=== PATIENT | male | born 1995 ===

== ENCOUNTER 2019-02-15 15:15 | Emergency (ER) | payer SELFPAY ==
[2019-02-15 15:41] VITALS: TEMP 98
[2019-02-15] MEDS ORDERED: Sodium Chloride 0.9% 1,000 ML IV ONE (16:07)
[2019-02-15 16:15] LABS: BASO % 0.3 % (0.0-2.0); EOS % 0.1 % (0.0-4.0); HEMOGLOBIN 16.4 g/dL (12.0-18.0); LYMPH # 0.6 K/uL (1.0-4.3); LYMPH % 6.5 % (20.0-40.0); MEAN CELL VOLUME 93.3 fL (80.0-94.0); MEAN CORPUSCULAR HEMOGLOBIN 31.8 pg (27.0-31.0); MEAN CORPUSCULAR HGB CONC 34.1 g/dL (33.0-37.0); MEAN PLATELET VOLUME 10.2 fL (7.2-11.7); MONO # 0.1 K/uL (0.0-0.8); MONO % 1.5 % (0.0-10.0); NEUT # 8.3 K/uL (1.8-7.0); NEUT % 91.6 % (50.0-75.0); PLATELET COUNT 170 K/uL (130-400); RBC 5.14 Mil/uL (4.40-5.90); RED CELL DISTRIBUTION WIDTH 12.9 % (11.5-14.5)
[2019-02-15] MEDS ORDERED: Sodium Chloride 0.9% 1,000 ML ONE (16:17)
[2019-02-15 16:19] LABS: ALB/GLOB RATIO 1.5 (1.0-2.1); ALT/SGPT 27 U/L (21-72); AST/SGOT 32 U/L (17-59); BLOOD UREA NITROGEN 14 mg/dL (9-20); CALCIUM 9.8 mg/dl (8.6-10.4); GFR NON-AFRICAN AMERICAN > 60
[2019-02-15 16:23] LABS: SQUAMOUS EPITHIAL < 1 /hpf (0-5); URINE BILIRUBIN NEGATIVE (NEGATIVE); URINE BLOOD NEGATIVE (NEGATIVE); URINE CLARITY Clear (Clear); URINE COLOR Yellow (YELLOW); URINE GLUCOSE (UA) NORMAL (Normal); URINE LEUKOCYTE ESTERASE NEG Leu/uL (Negative); URINE PROTEIN 1+ mg/dL (NEGATIVE); URINE UROBILINOGEN NORMAL mg/dL (0.2-1.0)
[2019-02-15 16:31] LABS: CK-MB 1.91 ng/mL (0.0-3.38)
[2019-02-15 16:35] LABS: BARBITURATES, UR NEGATIVE (NEGATIVE); BENZODIAZEPINES, UR NEGATIVE (NEGATIVE); OPIATES, UR NEGATIVE (NEGATIVE); PHENCYCLIDINE, UR NEGATIVE (NEGATIVE)
[2019-02-15 16:46] LABS: ANISOCYTOSIS SLIGHT; LYMPHOCYTE 8 % (20-40); MONOCYTE 1 % (0-10); NEUTROPHIL 91 % (50-75); PLATELET ESTIMATE NORMAL (NORMAL); TOTAL CELLS COUNTED 100
[2019-02-15 16:47] LABS: GIANT PLATELETS PRESENT; LARGE PLATELETS PRESENT
[2019-02-15 18:06] VITALS: BP 108/70; PULSE 93; RESP 13; O2SAT 96
--- NOTE | 2019-02-15 18:10 | C.PDOC ---
History Of Present Illness 23 year old male presents to the ED complaining of diffused abdominal pain associated with nausea and vomiting that began this morning. Reports he ate shrimp last night. Denies any other sick contacts. Also notes he had a near-syncopal episode today and 2 full syncopal episodes witnessed by other people in the past month. Denies any chest pain, shortness of breath, palpitations, visual changes, facial droop, slurred speech, sensory changes, or extremity weakness. Time Seen by Provider: 02/15/19 15:16 Chief Complaint (Nursing): Abdominal Pain History Per: Patient History/Exam Limitations: no limitations Onset/Duration Of Symptoms: Hrs Current Symptoms Are (Timing): Still Present Location Of Pain/Discomfort: Diffuse Quality Of Discomfort: "Pain" Associated Symptoms: Nausea, Vomiting Past Medical History Reviewed: Historical Data, Nursing Documentation, Vital Signs Vital Signs: Last Vital Signs Temp 98.0 F 02/15/19 15:25 Pulse 93 H 02/15/19 18:06 Resp 13 02/15/19 18:06 BP 108/70 02/15/19 18:06 Pulse Ox 96 02/15/19 18:06 Primary Care Provider: FAMILY PROVIDER,NO - Medical History PMH: No Chronic Diseases Surgical History: Back Surgery (Spinal fusion) Family History: States: No Known Family Hx - Social History Hx Alcohol Use: Yes Hx Substance Use: No - Immunization History Hx Tetanus Toxoid Vaccination: Yes Hx Influenza Vaccination: No Hx Pneumococcal Vaccination: Yes Review Of Systems Constitutional: Negative for: Fever, Chills Eyes: Negative for: Vision Change Cardiovascular: Negative for: Chest Pain, Palpitations Gastrointestinal: Positive for: Nausea, Vomiting, Abdominal Pain. Negative for: Diarrhea, Constipation Genitourinary: Negative for: Dysuria, Hematuria Musculoskeletal: Negative for: Back Pain Neurological: Negative for: Weakness, Numbness, Other (facial droop ) Physical Exam - Physical Exam Appears: Non-toxic, No Acute Distress Skin: Warm, Dry Head: Atraumatic, Normacephalic Eye(s): bilateral: Normal Inspection, PERRL, EOMI Nose: Normal Oral Mucosa: Moist Neck: Supple Chest: Symmetrical Cardiovascular: Rhythm Regular, No Murmur Respiratory: No Rales, No Rhonchi, No Wheezing, Other (good air movement, CTA B/L ) Gastrointestinal/Abdominal: Soft, No Tenderness, No Distention, No Guarding, No Rebound Extremity: No Pedal Edema Extremity: Bilateral: Atraumatic, Normal Color And Temperature, Normal ROM Neurological/Psych: Oriented x3, Normal Speech Gait: Steady ED Course And Treatment - Laboratory Results Result Diagrams: 02/15/19 16:04 02/15/19 16:04 Lab Results: D-Dimer, Quantitative < 200 ng/mlDDU (0-243) 02/15/19 16:04 Troponin I < 0.0120 ng/mL (0.00-0.120) 02/15/19 16:04 Total Bilirubin 0.5 mg/dL (0.2-1.3) 02/15/19 16:04 AST 32 U/L (17-59) 02/15/19 16:04 ALT 27 U/L (21-72) 02/15/19 16:04 Alkaline Phosphatase 78 U/L (38-126) 02/15/19 16:04 Total Protein 8.2 g/dL (6.3-8.3) 02/15/19 16:04 Albumin 5.0 g/dL (3.5-5.0) 02/15/19 16:04 Globulin 3.2 gm/dL (2.2-3.9) 02/15/19 16:04 Albumin/Globulin Ratio 1.5 (1.0-2.1) 02/15/19 16:04 Lipase 16 U/L (23-300) L 02/15/19 16:57 Urine Color Yellow (YELLOW) 02/15/19 16:00 Urine Clarity Clear (Clear) 02/15/19 16:00 Urine pH 6.0 (5.0-8.0) 02/15/19 16:00 Ur Specific [place] 1.020 (1.003-1.030) 02/15/19 16:00 Urine Protein 1+ mg/dL (NEGATIVE) H 02/15/19 16:00 Urine Glucose (UA) Normal mg/dL (Normal) 02/15/19 16:00 Urine Ketones Trace mg/dL (NEGATIVE) 02/15/19 16:00 Urine Blood Negative (NEGATIVE) 02/15/19 16:00 Urine Nitrate Negative (NEGATIVE) 02/15/19 16:00 Urine Bilirubin Negative (NEGATIVE) 02/15/19 16:00 Urine Urobilinogen Normal mg/dL (0.2-1.0) 02/15/19 16:00 Ur Leukocyte Esterase Neg [place]/uL (Negative) 02/15/19 16:00 Urine WBC (Auto) < 1 /hpf (0-5) 02/15/19 16:00 Urine RBC (Auto) 1 /hpf (0-3) 02/15/19 16:00 Ur Squamous Epith Cells < 1 /hpf (0-5) 02/15/19 16:00 ECG: Interpreted By Me, Viewed By Me ECG Rhythm: Sinus Rhythm, R BBB Interpretation Of ECG: No acute ST/T wave changes. O2 Sat by Pulse Oximetry: 96 (RA) Pulse Ox Interpretation: Normal Progress Note: EKG ordered. Patient treated with Zofran, Protonic, and IV fluids. Blood and urine collected and sent to the lab for analysis. Disposition Counseled Patient/Family Regarding: Studies Performed, Diagnosis, Need For Followup, Rx Given - Disposition Referrals: at [facility] [Outside] Tani Golden MD [Staff Provider] - Disposition: HOME/ ROUTINE Disposition Time: 18:10 Condition: STABLE Additional Instructions: FOLLOW UP WITH YOUR DOCTOR/CLINIC IN 1-2 DAYS, AND WITH CARDIOLOGY WITHIN 1 WEEK RETURN TO ER IF SYMPTOMS Prescriptions: Dicyclomine [Bentyl] 20 mg PO Q6 PRN #15 tab PRN Reason: ABDOMINAL CRAMPING Ondansetron ODT [Zofran ODT] 1 odt PO BID PRN #15 odt PRN Reason: Nausea/Vomiting Instructions: Nausea and Vomiting, Adult (DC) Forms: [facility] (Hebrew), Work Excuse Print Language: DANISH - Clinical Impression Clinical Impression: Abdominal pain, Nausea, Vomiting, Diarrhea, Near syncope - Scribe Statement The provider has reviewed the documentation as recorded by the Scribe Radha Huffman All medical record entries made by the Scribe were at my direction and personally dictated by me. I have reviewed the chart and agree that the record accurately reflects my personal performance of the history, physical exam, medical decision making, and the department course for this patient. I have also personally directed, reviewed, and agree with the discharge instructions and disposition.
--- NOTE | 2019-02-20 00:12 | CARD ---
APPROVED REPORT Date of service: 02/15/2019 EKG Measurement Heart [id number] <Conclusion> Normal sinus rhythm with sinus arrhythmia Incomplete right bundle branch block Borderline ECG
== END 2019-02-15 18:21 | disposition home or self-care (01) ==
LOC: C.ER 15:15
DX: R10.9 Unspecified abdominal pain (principal); R11.2 Nausea with vomiting, unspecified; R19.7 Diarrhea, unspecified; R55 Syncope and collapse
CPT/HCPCS: 80053; 81001; 82550; 82553; 82948; 83690; 84443; 84484; 85025; 85378; 96374; 96375; 99285; C9113; G0480; J2405; J7030